=== PATIENT | male | born 1970 | race Caucasian/White ===

== ENCOUNTER 2016-10-26 09:37 | Emergency (ER) | payer BC, OTHER ==
[2016-10-26 09:57] VITALS: BP 134/95
--- NOTE | 2016-10-26 11:49 | RAD ---
INDICATION: Right elbow injury. TECHNIQUE: 4 views of the right elbow were obtained. The study is slightly limited due to patient positioning. FINDINGS: The bones are in normal alignment. No joint effusion is seen. There is an osteophyte arising from the posterior aspect of the olecranon process of the ulna with a chronic fracture. There is an area of calcification versus a small avulsion fracture fragment adjacent to the lateral epicondyle. IMPRESSION: 1. SLIGHTLY LIMITED EXAM. 2. LINEAR CALCIFIC DENSITY ADJACENT TO THE LATERAL EPICONDYLE CONSISTENT WITH AN AREA OF CALCIFICATION VERSUS A SMALL AVULSION FRACTURE FRAGMENT.
--- NOTE | 2016-10-26 13:06 | UC ---
Jonah Leigh Karl, scribed for Lyric Anguiano DO on 10/26/16 at 1115 . Upper Extremity HPI - HPI Summary HPI Summary: Pt is a 46 y/o male that presents to [facility] c/o a RUE pain. Pt reported that he was pulling heavy wire at work at approx 08:40 this morning and felt a pop in his right forearm/bicep. Pt stated that he had radiating pain down his forearm when initial pop was felt but his pain is now located in his right bicep and the medial aspect of his right elbow. Pt reported that the pain he feels now is a 4 when at rest and is an 8/10 when he tries to extend his right arm. Pt also stated that his right elbow joint "feels tight" and that he can flex his arm but cannot extend it because it is painful. Pt also reported minor minor muscle pain in his right shoulder. Denies numbness, weakness, tingling. - History of Current Complaint Chief Complaint: UCUpperExtremity Stated Complaint: WC-RT ARM INJURY Time Seen by Provider: 10/26/16 11:04 Hx Obtained From: Patient ?: No Onset/Duration: Sudden Onset, Lasting Hours, Still Present Severity Initially: Moderate Severity Currently: Moderate Pain Intensity: 8 - Right forearm w/ extension Pain Scale Used: 0-10 Numeric Location Of Pain: Is Discrete @ - right forearm/bicep Character: Sharp - tightness Aggravating Factor(s): Movement, Extension Alleviating Factor(s): Rest - with elbow at an acute angle Associated Signs And Symptoms: Positive: Numbness/Tingling. Negative: Swelling , Redness, Bruising, Fever Related History: Occupational Injury - Allergies/Home Medications Allergies/Adverse Reactions: Allergies Allergy/AdvReac Type Severity Reaction Status Date / Time Bee Venom Allergy Anaphylatic Verified 10/26/16 09:51 Shock Penicillins Allergy Rash Verified 10/26/16 09:51 Home Medications: Home Medications Ibuprofen TAB* [Advil TAB*] 4 tab PO 10/26/16 [History] PMH/Surg Hx/FS Hx/Imm Hx Previously Healthy: Yes - Surgical History Surgical History: Yes Surgery Procedure, Year, and Place: APPY - Family History Known Family History: Positive: Cardiac Disease - half brother, Other - alzheimer's Negative: Hypertension, Diabetes - Social History Alcohol Use: Occasionally Substance Use Type: None Smoking Status (MU): Current Every Day Smoker Type: eCigtrish Review of Systems Constitutional: Negative Skin: Negative Eyes: Negative ENT: Negative Respiratory: Negative Cardiovascular: Negative Gastrointestinal: Negative Genitourinary: Negative Motor: Negative Neurovascular: Negative Musculoskeletal: Arthralgia - right forearm and right elbow joint, Decreased ROM - right elbow joint, Myalgia - right forearm and right bicep Neurological: Negative Psychological: Negative All Other Systems Reviewed And Are Negative: Yes Physical Exam Triage Information Reviewed: Yes Appearance: Well-Appearing, No Pain Distress, Well-Nourished Vital Signs: Initial Vital Signs Temp 98.5 F 10/26/16 09:52 Pulse 83 10/26/16 09:52 Resp 18 10/26/16 09:52 BP 134/95 10/26/16 09:52 Pulse Ox 97 10/26/16 09:52 Vital Signs Reviewed: Yes Eyes: Positive: Conjunctiva Clear. Negative: Discharge ENT: Positive: Hearing grossly normal. Negative: Muffled/hoarse voice Neck exam: Normal Neck: Positive: Supple Respiratory: Positive: Lungs clear, Normal breath sounds, No respiratory distress, No accessory muscle use Cardiovascular: Positive: RRR, No Murmur Musculoskeletal Exam: Other - at medial epichondial and distal humerus, ROM restricted in extension - pt is stuck at 110 degrees of flexion Neurological: Positive: Alert, Muscle Tone Normal Psychological Exam: Normal Psychological: Positive: Age Appropriate Behavior Skin Exam: Normal - warm, dry, normal color Diagnostics - Radiology XR Right Elbow Xray Interpretation: Positive (See Comments) Radiology Interpretation Completed By: Radiologist - IMPRESSION: 1. SLIGHTLY LIMITED EXAM. 2. LINEAR CALCIFIC DENSITY ADJACENT TO THE LATERAL EPICONDYLE CONSISTENT WITH AN AREA OF CALCIFICATION VERSUS A SMALL AVULSION FRACTURE FRAGMENT. Upper Extremity Course/Dx - Differential Dx/Diagnosis Differential Diagnosis/HQI/PQRI: Contusion, Fracture (Closed), Strain, Other - biceps tendon rupture Provider Diagnoses: elbow fx, possible biceps tendon rupture Discharge - Discharge Plan Condition: Stable Disposition: HOME Prescriptions: HYDROcodone/ACETAMIN 5-325 MG* [Martha 5-325 TAB*] 1 tab PO Q6H PRN #14 tab MDD 4 TABS PRN Reason: Pain Patient Education Materials: Elbow Fracture in Adults (ED) Forms: *Work Release Referrals: Reuben Ayala MD [Primary Care Provider] - If Needed Gill Regalado MD [Medical Doctor] - (FOLLOW UP IN 1-3 DAYS OR PER ORTHO) Additional Instructions: ORAL NARCOTIC MEDICATION: You have been given a prescription for pain control. This medication is a narcotic. It's best taken with food, as nausea can result if taken on an empty stomach. Don't operate machinery or drive within six hours of taking this medication. Do not combine this medicine with alcohol, or with any medication which can cause sedation (such as cold tablets or sleeping pills) unless you get permission from the physician. Narcotics tend to cause constipation. If possible, drink plenty of fluids and eat a diet high in fiber and fruits. The documentation as recorded by the sherriibJonah layne Karl accurately reflects the service I personally performed and the decisions made by me, Lyric Anguiano DO.
== END 2016-10-26 12:20 | disposition home or self-care (01) ==
LOC: UCEAST 09:37
DX: S42.401A Unspecified fracture of lower end of right humerus, initial encounter for closed fracture (principal); X50.0XXA Overexertion from strenuous movement or load, initial encounter; Y93.89 Activity, other specified; Y99.0 Civilian activity done for income or pay; F17.290 Nicotine dependence, other tobacco product, uncomplicated
CPT/HCPCS: 99203; G0463

== ENCOUNTER 2017-11-15 11:25 | Day surgery (SDC) | payer OTHER ==
--- NOTE | 2017-11-11 20:15 | HP ---
PREOPERATIVE HISTORY AND PHYSICAL: DATE OF ADMISSION/SURGERY: 11/15/17 [facility] DATE OF OFFICE VISIT: 11/11/17 ATTENDING SURGEON: Dr. Stef Rawls.* (DICTATED BY MARY GRAYSON) PROCEDURE: Right elbow distal biceps repair. CHIEF COMPLAINT: Right elbow pain. HISTORY OF PRESENT ILLNESS: Carson is a 47-year-old male, who presents to the clinic for right elbow pain due to a work-related injury to his distal biceps. He continues to have pain with lifting and pulling. He has failed conservative measures to include physical therapy; therefore, has agreed to undergo a right elbow distal biceps repair with Dr. Rawls on 11/15/17. PAST MEDICAL HISTORY: Positive for back pain and osteoarthritis of his left knee. PAST SURGICAL HISTORY: Appendectomy. Denies prior complications with anesthesia. MEDICATIONS: Naproxen 500 mg 1 by mouth twice a day as needed for pain. ALLERGIES: PENICILLIN. FAMILY HISTORY: Positive for diabetes type 2, Alzheimer's in his father and mom had a history of DVT at age 94. 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 He is a former smoker, quit 10 years ago. He reports rare alcohol consumption. He is right-hand dominant. REVIEW OF SYSTEMS: A 14-point review of systems was reviewed with the patient. Positive for current complaint, otherwise negative. Denies history of chest pain, shortness of breath, DVT or PE, history of bleeding disorder. He denies fevers, chills. PHYSICAL EXAMINATION GENERAL: Well-developed, well-nourished, 47-year-old male, in no acute distress. Alert and oriented x3. Appropriate mood and affect. VITAL SIGNS: Height 73, weight 320, blood pressure 122/82, respiratory rate 20 , temperature 97.9, BMI of 42.2. HEENT: Normocephalic, atraumatic. PERRLA. Throat clear. NECK: Supple. PULMONARY: Lungs are clear to auscultation bilaterally. No wheezing, rhonchi, or rales. CARDIO: Regular rate and rhythm. S1 and S2. No murmurs, gallops, or rubs. No edema. ABDOMEN: Positive bowel sounds, soft, nontender. MUSCULOSKELETAL: Right upper extremity, skin is intact. No warmth or erythema. Full flexion and extension with symmetrical pronation and supination. Pain with resisted supination and flexion of the elbow at the distal biceps. The distal biceps is palpable but tender. +5/5 strength to elbow flexion. +2 radial pulse. Sensation intact to light touch distally. NEURO: Alert and oriented x 3. Cranial nerves are grossly intact. Sensation is intact to light touch. DIAGNOSTIC STUDIES: MRI of the right elbow reveals a persistent partial thickness tear of the distal biceps tendon with distal biceps tendinopathy. IMPRESSION: Right elbow distal biceps tear. PLAN: The patient is scheduled to undergo a right elbow distal biceps repair with Dr. Rawls on 11/15/17. He will return to the office 10 to 14 days postop for followup and suture removal. Percocet was sent to the patient's pharmacy for postop pain management and clindamycin was sent for antibiotic prophylaxis. MARY GRAYSON [id number]/[facility] #: [id number] AVERY
[2017-11-15] MEDS ORDERED: Clindamycin 900 MG IVPREMIX(* 900 MG/50 ML SDV IV ONE (12:00)
[2017-11-15 13:05] VITALS: BP 146/76
[2017-11-15] MEDS ORDERED: Naloxone* 0.4 MG/ML 1 ML VIAL IV PRN (13:49)
[2017-11-15] MEDS ORDERED: Ondansetron INJ* 2 MG/ML VIAL IV PRN (13:49)
[2017-11-15] MEDS ORDERED: fentaNYL* 50 MCG/ML 2 ML VIAL (100 MCG VIAL) IV PRN (13:49)
[2017-11-15] MEDS ORDERED: Bacitracin OINTMENT* 0.5% 0.5 oz TUBE ONE (14:26)
== END 2017-11-15 14:37 | disposition home or self-care (01) ==
LOC: OREAST 11:25
PROVIDERS: ATTEND Orthopaedic Surgery
DX: S46.211A Strain of muscle, fascia and tendon of other parts of biceps, right arm, initial encounter (principal); Z53.9 Procedure and treatment not carried out, unspecified reason; X50.0XXA Overexertion from strenuous movement or load, initial encounter; Y92.9 Unspecified place or not applicable; Y99.0 Civilian activity done for income or pay
CPT/HCPCS: A9270-GY

== ENCOUNTER 2017-11-22 13:06 | Day surgery (SDC) | payer OTHER ==
[~2017-11-22 13:06] MED LIST: Buffered Lidocaine 0.9% SYRIN* 5 ML/SYR SYRINGE INTRADERM ONE; Dexamethasone IV* 4 MG/ML 1 ML (4 MG) IV SLOW PU ONE; Famotidine IV* 10 MG/ML 2 ML (20 mg) IV ONE
[2017-11-22] MEDS ORDERED: Dexamethasone IV* 4 MG/ML 1 ML (4 MG) ONE (13:17)
[2017-11-22] MEDS ORDERED: Famotidine IV* 10 MG/ML 2 ML (20 mg) ONE (13:17)
[2017-11-22] MEDS ORDERED: Clindamycin 900 MG IVPREMIX(* 900 MG/50 ML SDV IV ONE (13:33)
[2017-11-22] MEDS ORDERED: Bupivacaine 0.25% SDV* 30 ML ONE (15:01)
[2017-11-22] MEDS ORDERED: fentaNYL* 50 MCG/ML 5 ML VIAL (250 MCG VIAL) ONE (15:13)
[2017-11-22] MEDS ORDERED: Lidocaine 2% PF * 5 ML VIAL ONE (15:14)
[2017-11-22] MEDS ORDERED: Ketorolac INJ* 30 MG/ML 1 ML VIAL ONE (15:14)
[2017-11-22] MEDS ORDERED: Propofol* 10 MG/ML 20 ML BTL IV PUSH ONE (15:14)
[2017-11-22] MEDS ORDERED: Ondansetron INJ* 2 MG/ML VIAL ONE (15:14)
[2017-11-22] MEDS ORDERED: Midazolam* 1 MG/ML 2 ML VIAL (2 MG) ONE (15:14)
[2017-11-22] MEDS ORDERED: fentaNYL* 50 MCG/ML 2 ML VIAL (100 MCG VIAL) ONE ×3 (15:59→17:52)
[2017-11-22] MEDS ORDERED: Ondansetron INJ* 2 MG/ML VIAL IV PRN (16:26)
[2017-11-22] MEDS ORDERED: Naloxone* 0.4 MG/ML 1 ML VIAL IV PRN (16:26)
[2017-11-22] MEDS ORDERED: DiMENhydriNATE IV* 50 MG/ML VIAL IV PUSH PRN (16:26)
[2017-11-22] MEDS ORDERED: oxyCODONE/Acetamin 5/325 MG* TAB PO PRN (16:26)
[2017-11-22] MEDS: fentaNYL* 50 MCG/ML 2 ML VIAL (100 MCG VIAL) IV PRN ×2 (17:57→18:07)
[2017-11-22] MEDS ORDERED: oxyCODONE/Acetamin 5/325 MG* TAB ONE ×2 (18:13→18:58)
[2017-11-22 18:31] VITALS: BP 139/80
--- NOTE | 2017-11-23 16:16 | RAD ---
INDICATION: Right elbow surgery. COMPARISON: Comparison is made with a prior x-ray study of the right elbow from September 21, 2017. TECHNIQUE: 19 seconds of intermittent fluoroscopic guidance were provided and 3 spot films of the right elbow were obtained in the operating room. FINDINGS: The films demonstrate a small surgical defect and plate present along the proximal radius in the region of the biceps tendon insertion. IMPRESSION: INTRAOPERATIVE CONTROL FILMS. CPT II Codes: 6045F
--- NOTE | 2017-11-29 20:13 | OP ---
DATE OF OPERATION: 11/22/17 - [facility] DATE OF : 70 SURGEON: Stef Rawls MD COMMERCIAL DECORATOR: MARY Navarrete. An assistant professor of biology was needed for the entirety of the case to help with positioning, retraction, and was utilized throughout all portions of the case. ANESTHESIOLOGIST: Ramon Pelaez MD ANESTHESIA: General. PRE-OP DIAGNOSIS: Right distal biceps high-grade partial thickness tear. POST-OP DIAGNOSIS: Right distal biceps high-grade partial thickness tear. OPERATIVE PROCEDURE: Right distal biceps repair. INDICATIONS: Carson Han is a 47-year-old male, who sustained a work-related injury since October of 2016 to his right elbow. We diagnosed him with partial thickness tear. Initially, he was getting better with physical therapy and conservative management, then it started to bother him again. 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 He had failed conservative management. Risks and benefits of surgery were discussed at length that include, but are not limited to, bleeding; infection; damage to nerves, vessels, and surrounding structures including the radial nerve and the PIN; stiffness; persistent pain; heterotopic ossification; risk of anesthesia; scarring; incomplete relief of symptoms; risk of retear; risk of DVT. He has elected to proceed. IMPLANTS USED: One Arthrex biceps button. TOURNIQUET TIME: 76 minutes. DESCRIPTION OF PROCEDURE: The patient was greeted in the preoperative area by the attending surgeon. The correct extremity was marked and consent was confirmed. The patient was then brought back to the operating suite, where he was placed in the supine position on the operating table. He then underwent general anesthesia with endo-tracheal intubation after which the right arm was prepped and draped in the usual sterile fashion. A sterile tourniquet was placed. The patient's forearm was very large and the tourniquet ended up being a venous tourniquet towards the end of the case due to the patient's size. The right arm was prepped and draped in usual sterile fashion beginning with chlorhexidine soap, scrub, and alcohol wipe, and a final prep with ChloraPrep. After appropriate surgical pause indicating site, side, procedure, and administration of antibiotics, a longitudinal incision just over the radius was done, after using the minicarm to shirin where the radial tuberosity was, approximately 5-cm incision was made. Soft tissue carefully dissected to expose the fascia, which was then gently retracted, brachioradialis was identified. The dissection was taken down to the level of the radius. Biceps was then identified at the distal attachment of the radial tuberosity. Soft tissues were carefully retracted. Hemostasis was maintained at all times using electrocautery device. The radial tuberosity was identified, the biceps was identified, and evidence of partial thickness tear, but was still mostly intact. Biceps was then removed from the footprint after it was tagged. The tendon appeared to be diseased. Radial tuberosity was then prepared using a rasp and rongeur to allow for bony bleeding edge. The tendon was then secured using the Arthrex FiberLoop stitch. Once this was passed, the sutures were then passed through the Arthrex button and later for deployment. With the forearm hypersupinated and extending to protect the PIN with retractor on each side of the radius, the guidewire was placed in the center of the footprint after it was used to confirm its placement. This was then overdrilled with a size 8-mm drill. The wounds were copiously irrigated to remove any excess bony debris to prevent any propagation of heterotopic ossification and this was used because the sizing of the tendon after suture was passed. The button was then passed through the tendon and then deployed and confirmed the deployed sutures were carefully shuttled so that the biceps was down into the previously drilled tunnel. The suture was then passed back through the tendon and then tied down for extra fixation, although it was kept at approximately 70 degrees to allow for maximum amount of reduction. The wounds were copiously irrigated with sterile saline. Biceps was found to be palpable. The wound was closed in layers with 2-0 Vicryl and 3-0 Monocryl. Sterile dressings were applied. The wound was injected with 0.25% Marcaine plain. Tourniquet was deflated for a total time of 76 minutes. The extremity was pink and well-perfused and a well-padded posterior splint was then placed. He was then awoken from anesthesia and transferred to the PACU in stable condition. POSTOPERATIVE PLAN: He will be nonweightbearing. He will be in the splint for appropriately 2 weeks. He will be discharged on pain medication. Postoperative exam was done, he was found to fully extend his digits, flex and extend his wrist, and he was sensate to light touch about the first dorsal webspace and all aspects of small finger. He had brisk cap refill. DVT prophylaxis was considered, but deferred due to no previous personal or family history. I will see the patient back in 2 weeks. [id number]/[facility] #: [id number] MTDD
== END 2017-11-22 18:55 | disposition home or self-care (01) ==
LOC: OREAST 13:06
PROVIDERS: ATTEND Orthopaedic Surgery
DX: S46.211A Strain of muscle, fascia and tendon of other parts of biceps, right arm, initial encounter (principal); E66.01 Morbid (severe) obesity due to excess calories; Z87.891 Personal history of nicotine dependence; X50.0XXA Overexertion from strenuous movement or load, initial encounter; Y92.69 Other specified industrial and construction area as the place of occurrence of the external cause; Y99.0 Civilian activity done for income or pay
CPT/HCPCS: 76000; A9270-GY; C1713; J1100; J1885; J2250; J2405; J2704; J3010